=== PATIENT | female | born 1985 | race Caucasian/White ===

== ENCOUNTER 2018-01-22 19:51 | Emergency (ER) | payer SELFPAY ==
[~2018-01-22] VITALS: Ht 152.4 cm; Wt 79.6 kg
[2018-01-22 19:58] VITALS: BP 113/79
== END 2018-01-22 21:17 | disposition home or self-care (01) ==
LOC: ED 21:00
DX: M79.1 Myalgia (principal); F17.200 Nicotine dependence, unspecified, uncomplicated
CPT/HCPCS: 71046; 93005; 99284

== ENCOUNTER 2018-01-26 15:55 | Inpatient (IN) | payer OTHER ==
[~2018-01-26] VITALS: Ht 160 cm; Wt 82.4 kg
[2018-01-26] MEDS ORDERED: KETOROLAC 30 MG/1 ML IVPush ONE ×2 (17:00→18:00)
[2018-01-26] MEDS ORDERED: ACETAMINOPHEN 500 MG TABLET PO ONE (17:00)
[2018-01-26 17:03] LABS: MEAN CORPUSCULAR HEMOGLOBIN 30.7 pg (27.0-34.8); MEAN CORPUSCULAR HGB CONC 34.1 g/dL (32.4-35.8); MEAN CORPUSCULAR VOLUME 89.8 fL (80-100); MEAN PLATELET VOLUME 6.9 fL (7.4-10.4); PLATELET COUNT 398 x10^3/uL (130-400); RED BLOOD COUNT 3.61 x10^6/uL (3.82-5.3); RED CELL DISTRIBUTION WIDTH 12.7 % (9.6-15.2)
[2018-01-26] MEDS ORDERED: KETOROLAC 30 MG/1 ML ONE ×2 (17:05→17:53)
[2018-01-26] MEDS ORDERED: ACETAMINOPHEN 500 MG TABLET ONE (17:05)
[2018-01-26 17:13] LABS: ALANINE AMINOTRANSFERASE 14 U/L (12-78); ALBUMIN 2.3 g/dL (3.4-5.0); ANION GAP 12 mmol/L (5-15); CALCIUM 8.6 mg/dL (8.5-10.1); CHLORIDE 95 mmol/L (98-107); CREATININE 1.11 mg/dL (0.55-1.02)
[2018-01-26 17:18] LABS: ALKALINE PHOSPHATASE 181 U/L (45-117); BILIRUBIN,TOTAL 0.8 mg/dL (0.2-1.0); TOTAL PROTEIN 7.3 g/dL (6.4-8.2)
[2018-01-26] MEDS ORDERED: METH500T97 PO (17:30)
[2018-01-26] MEDS ORDERED: CEFTRIAXONE PMX 1GM/50ML 50 ML ONE (17:39)
[2018-01-26 17:47] LABS: MD YES
[2018-01-26 17:52] LABS: <PLATELET ESTIMATE> ADEQUATE; <PLT MORPHOLOGY> NORMAL PLT MORPH; <RBC MORPHOLOGY> NORMAL; BAND#(MANUAL) 3.31 x10^3/uL; BANDS%(MANUAL) 18 % (0-7); EOS#(MANUAL) 0.18 x10^3/uL (0.0-0.4); EOS% (MANUAL) 1 % (1-7); LYMPH#(MANUAL) 0.55 x10^3/uL (1-3.4); LYMPHS% (MANUAL) 3 % (22-44); METAMYELOCYTES# (MANUAL) 0.37 x10^3/uL (0-0); METAMYELOCYTES% (MANUAL) 2 % (0-1); MONOS#(MANUAL) 0.37 x10^3/uL (0.3-2.7); MONOS% (MANUAL) 2 % (2-9); SEG#(MANUAL) 13.62 x10^3/uL (1.8-6.8); SEGS% (MANUAL) 74 % (42-75); TOXIC GRAN 1+
[2018-01-26] MEDS ORDERED: CEFTRIAXONE PMX 1GM/50ML 50 ML IV ONE (18:00)
[2018-01-26] MEDS ORDERED: SODIUM CHLORIDE 0.9% 1,000ML IVBOLUS ONE ×2 (18:00)
[2018-01-26] MEDS ORDERED: POTASSIUM CHLORIDE 40 MEQ in SODIUM CHLORIDE 0.9% 500 ML IV ONE (18:00)
[2018-01-26] MEDS ORDERED: AZITHROMYCIN 500 MG in SODIUM CHLORIDE 0.9% 250 ML IV ONE (18:00)
[2018-01-26] MEDS ORDERED: MORPHINE SULFATE 4 MG/ML, 1ML IVPush PRN (18:00)
[2018-01-26 18:09] LABS: MICROSCOPIC INDICATED
[2018-01-26 18:22] LABS: CULTURE INDICATED? NO
[2018-01-26] MEDS ORDERED: ONDANSETRON 2MG/ML, 2ML ONE (18:28)
[2018-01-26] MEDS ORDERED: ONDANSETRON 2MG/ML, 2ML IVPush ONE (18:30)
[2018-01-26 18:46] LABS: AMPHETAMINE SCREEN, URINE Positive (Negative); BARBITURATE SCREEN, URINE Negative (Negative); BENZODIAZEPINE SCREEN, URINE Negative (Negative); CANNABINOID SCREEN, URINE Negative (Negative); COCAINE SCREEN, URINE Negative (Negative); METHADONE SCREEN, URINE Negative (Negative); OPIATE SCREEN, URINE Positive (Negative)
[2018-01-26] MEDS ORDERED: POLYETHYLENE GLYCOL 17 GM PACKET PO PRN (19:00)
[2018-01-26] MEDS ORDERED: ONDANSETRON 2MG/ML, 2ML IVPush PRN (19:00)
[2018-01-26] MEDS ORDERED: CEFTRIAXONE PMX 1GM/50ML 50 ML IV SCH (19:00)
[2018-01-26] MEDS ORDERED: AZITHROMYCIN 500 MG in SODIUM CHLORIDE 0.9% 250 ML IV SCH (19:00)
[2018-01-26] MEDS ORDERED: BISACODYL 10 MG SUPP PR PRN (19:00)
[2018-01-26 19:55] VITALS: BP 95/60
[2018-01-26] MEDS: HEPARIN 5,000 UNITS/ML, 1ML SQ SCH (21:14)
[2018-01-26] MEDS: NICOTINE 14MG/24 HR PATCH.TD24 TD SCH (21:14)
[2018-01-26 21:22] VITALS: BP 95/60
[2018-01-26] MEDS ORDERED: BUPR1FIL3 TD (21:37)
[2018-01-26 22:13] VITALS: BP 96/56
[2018-01-26] MEDS: NS + 20MEQ KCL 1,000 ML IV SCH (22:28)
[2018-01-27] VITALS (7 sets, daily range): BP systolic 93–131; BP diastolic 56–80
[2018-01-27] MEDS: ACETAMINOPHEN 325 MG TABLET PO PRN ×4 (01:28→18:45)
[2018-01-27] MEDS: HEPARIN 5,000 UNITS/ML, 1ML SQ SCH ×3 (02:59→20:33)
[2018-01-27 05:47] LABS: MEAN CORPUSCULAR HEMOGLOBIN 29.5 pg (27.0-34.8); MEAN CORPUSCULAR HGB CONC 33.1 g/dL (32.4-35.8); MEAN CORPUSCULAR VOLUME 89.2 fL (80-100); MEAN PLATELET VOLUME 7.4 fL (7.4-10.4); PLATELET COUNT 304 x10^3/uL (130-400); RED BLOOD COUNT 3.12 x10^6/uL (3.82-5.3); RED CELL DISTRIBUTION WIDTH 13.1 % (9.6-15.2)
[2018-01-27 06:10] LABS: MD YES
[2018-01-27 06:13] LABS: <PLATELET ESTIMATE> ADEQUATE; <PLT MORPHOLOGY> NORMAL PLT MORPH; <RBC MORPHOLOGY> NORMAL; BAND#(MANUAL) 1.02 x10^3/uL; BANDS%(MANUAL) 6 % (0-7); MONOS#(MANUAL) 2.04 x10^3/uL (0.3-2.7); MONOS% (MANUAL) 12 % (2-9); SEG#(MANUAL) 13.94 x10^3/uL (1.8-6.8); SEGS% (MANUAL) 82 % (42-75); TOXIC GRAN 1+
[2018-01-27 06:15] LABS: CHLORIDE 108 mmol/L (98-107)
[2018-01-27 06:31] LABS: ALANINE AMINOTRANSFERASE 17 U/L (12-78); ALBUMIN 1.9 g/dL (3.4-5.0); ALKALINE PHOSPHATASE 169 U/L (45-117); CALCIUM 7.9 mg/dL (8.5-10.1); CREATININE 0.73 mg/dL (0.55-1.02); TOTAL PROTEIN 6.3 g/dL (6.4-8.2)
[2018-01-27] MEDS: NS + 20MEQ KCL 1,000 ML IV SCH ×3 (06:41→20:33)
[2018-01-27 07:03] LABS: ANION GAP 11 mmol/L (5-15)
[2018-01-27] MEDS ORDERED: VANCOMYCIN PER PHARMACY MC PRN (08:00)
[2018-01-27] MEDS ORDERED: VANCOMYCIN 1,500 MG in SODIUM CHLORIDE 0.9% 250 ML IV SCH (08:00)
[2018-01-27] MEDS ORDERED: PHARMACOKINETIC MONITORING MC PRN (08:00)
[2018-01-27] MEDS ORDERED: PHARMACOKINETIC CONSULTATION MC ONE (08:00)
[2018-01-27] MEDS: SENNA/DOCUSATE TABLET PO SCH (09:00)
[2018-01-27] MEDS: METHOCARBAMOL 500 MG TABLET PO SCH (10:09)
[2018-01-27] MEDS: POTASSIUM CHLORIDE 20 MEQ TAB.ER.PRT PO SCH ×2 (10:09→20:33)
[2018-01-27] MEDS ORDERED: BUPR1FIL3 TD (10:28)
[2018-01-27] MEDS: LINEZOLID PMX 600MG/300ML 300 ML IV SCH ×2 (11:33→23:00)
[2018-01-27 11:47] LABS: RAPID INFLUENZA A Negative (Negative); RAPID INFLUENZA B Negative (Negative)
[2018-01-27] MEDS: LORazepam 0.5MG TABLET PO PRN ×2 (12:41→20:41)
[2018-01-27] MEDS ORDERED: CEFTRIAXONE 1,000 MG in SODIUM CHLORIDE 0.9% 50 ML IV SCH (18:00)
[2018-01-27] MEDS ORDERED: AZITHROMYCIN 500 MG in SODIUM CHLORIDE 0.9% 250 ML IV SCH (18:00)
[2018-01-27] MEDS: NICOTINE 14MG/24 HR PATCH.TD24 TD SCH (18:45)
[2018-01-28] MEDS: ACETAMINOPHEN 325 MG TABLET PO PRN ×3 (00:42→16:32)
[2018-01-28 01:21] VITALS: BP 107/67
[2018-01-28 04:58] LABS: MEAN CORPUSCULAR HEMOGLOBIN 29.8 pg (27.0-34.8); MEAN CORPUSCULAR HGB CONC 32.9 g/dL (32.4-35.8); MEAN CORPUSCULAR VOLUME 90.5 fL (80-100); MEAN PLATELET VOLUME 7.5 fL (7.4-10.4); PLATELET COUNT 218 x10^3/uL (130-400); RED CELL DISTRIBUTION WIDTH 13.1 % (9.6-15.2)
[2018-01-28 05:02] LABS: CHLORIDE 112 mmol/L (98-107)
[2018-01-28 05:11] LABS: % IRON SATURATION 7 % (20-55); ALANINE AMINOTRANSFERASE 15 U/L (12-78); ALBUMIN 1.6 g/dL (3.4-5.0); ALKALINE PHOSPHATASE 261 U/L (45-117); ANION GAP 6 mmol/L (5-15); BILIRUBIN,TOTAL 1.1 mg/dL (0.2-1.0); CALCIUM 7.8 mg/dL (8.5-10.1); CREATININE 0.47 mg/dL (0.55-1.02); IRON LEVEL 18 mcg/dL (50-170); TOTAL IRON BINDING CAPACITY 260 mcg/dL (250-450); TOTAL PROTEIN 5.9 g/dL (6.4-8.2)
[2018-01-28] MEDS: NS + 20MEQ KCL 1,000 ML IV SCH ×2 (05:36→14:19)
[2018-01-28] MEDS: HEPARIN 5,000 UNITS/ML, 1ML SQ SCH ×3 (05:36→20:59)
[2018-01-28 05:44] LABS: MD YES
[2018-01-28 05:46] LABS: <RBC MORPHOLOGY> NORMAL; BAND#(MANUAL) 1.52 x10^3/uL; BANDS%(MANUAL) 8 % (0-7); BASOS#(MANUAL) 0.19 x10^3/uL (0-0.1); BASOS% (MANUAL) 1 % (0-1); EOS#(MANUAL) 0.19 x10^3/uL (0.0-0.4); EOS% (MANUAL) 1 % (1-7); LYMPH#(MANUAL) 1.14 x10^3/uL (1-3.4); LYMPHS% (MANUAL) 6 % (22-44); MONOS#(MANUAL) 0.57 x10^3/uL (0.3-2.7); MONOS% (MANUAL) 3 % (2-9); SEG#(MANUAL) 15.39 x10^3/uL (1.8-6.8); SEGS% (MANUAL) 81 % (42-75)
[2018-01-28 05:47] LABS: <PLATELET ESTIMATE> ADEQUATE; <PLT MORPHOLOGY> NORMAL PLT MORPH
[2018-01-28] MEDS: SENNA/DOCUSATE TABLET PO SCH (09:00)
[2018-01-28 09:19] VITALS: BP 112/76
[2018-01-28] MEDS: METHOCARBAMOL 500 MG TABLET PO SCH (10:41)
[2018-01-28] MEDS: POTASSIUM CHLORIDE 20 MEQ TAB.ER.PRT PO SCH ×2 (10:41→20:59)
[2018-01-28] MEDS: LORazepam 0.5MG TABLET PO PRN ×3 (10:42→22:15)
[2018-01-28] MEDS: LINEZOLID PMX 600MG/300ML 300 ML IV SCH (12:31)
[2018-01-28] MEDS ORDERED: MORPHINE SULFATE 4 MG/ML, 1ML IVPush ONE (15:10)
[2018-01-28 15:18] VITALS: BP 112/73
[2018-01-28] MEDS ORDERED: OMNIPAQUE 350 MG/ML, 100ML BOTTLE ONE (17:02)
[2018-01-28 18:54] VITALS: BP 100/61
[2018-01-28] MEDS: NICOTINE 14MG/24 HR PATCH.TD24 TD SCH (21:00)
[2018-01-29] MEDS: LINEZOLID PMX 600MG/300ML 300 ML IV SCH (00:18)
[2018-01-29 02:36] VITALS: BP 112/70
[2018-01-29] MEDS: ACETAMINOPHEN 325 MG TABLET PO PRN (02:47)
[2018-01-29] MEDS ORDERED: FUROSEMIDE 40 MG/4 ML IV ONE (03:00)
[2018-01-29] MEDS ORDERED: FUROSEMIDE 40 MG/4 ML ONE (03:08)
[2018-01-29] MEDS: LORazepam 0.5MG TABLET PO PRN ×2 (03:38→13:36)
[2018-01-29] MEDS: HEPARIN 5,000 UNITS/ML, 1ML SQ SCH ×3 (05:35→21:00)
[2018-01-29 06:39] LABS: ALANINE AMINOTRANSFERASE 15 U/L (12-78); ALBUMIN 1.6 g/dL (3.4-5.0); ANION GAP 9 mmol/L (5-15); CHLORIDE 103 mmol/L (98-107); CREATININE 0.58 mg/dL (0.55-1.02)
[2018-01-29 06:40] VITALS: BP 101/70
[2018-01-29 06:42] LABS: ALKALINE PHOSPHATASE 334 U/L (45-117); BILIRUBIN,TOTAL 0.9 mg/dL (0.2-1.0)
[2018-01-29 06:45] LABS: MEAN CORPUSCULAR HEMOGLOBIN 29.9 pg (27.0-34.8); MEAN CORPUSCULAR HGB CONC 33.7 g/dL (32.4-35.8); MEAN CORPUSCULAR VOLUME 88.9 fL (80-100); MEAN PLATELET VOLUME 7.7 fL (7.4-10.4); PLATELET COUNT 235 x10^3/uL (130-400); RED BLOOD COUNT 3.59 x10^6/uL (3.82-5.3); RED CELL DISTRIBUTION WIDTH 13.4 % (9.6-15.2)
[2018-01-29 07:58] LABS: MD YES
[2018-01-29 07:59] LABS: LYMPH#(MANUAL) 1.97 x10^3/uL (1-3.4); LYMPHS% (MANUAL) 8 % (22-44); MONOS#(MANUAL) 0.98 x10^3/uL (0.3-2.7); MONOS% (MANUAL) 4 % (2-9); SEG#(MANUAL) 21.65 x10^3/uL (1.8-6.8); SEGS% (MANUAL) 88 % (42-75)
[2018-01-29 08:00] LABS: <PLATELET ESTIMATE> ADEQUATE; <PLT MORPHOLOGY> NORMAL PLT MORPH; <RBC MORPHOLOGY> NORMAL; TOXIC GRAN 1+
[2018-01-29] MEDS: POTASSIUM CHLORIDE 20 MEQ TAB.ER.PRT PO SCH ×2 (09:19→21:00)
[2018-01-29] MEDS: SENNA/DOCUSATE TABLET PO SCH (09:19)
[2018-01-29] MEDS: METHOCARBAMOL 500 MG TABLET PO SCH (09:19)
[2018-01-29 12:10] VITALS: BP 110/73
[2018-01-29] MEDS: FERROUS SULFATE 325 MG TABLET PO SCH ×2 (12:41→17:45)
[2018-01-29] MEDS: CEFAZOLIN PMX 2GM/50ML 50 ML IVPB SCH ×2 (12:41→21:00)
[2018-01-29] MEDS: NS + 20MEQ KCL 1,000 ML IV SCH (13:58)
[2018-01-29 20:00] VITALS: BP 111/74
[2018-01-29] MEDS: NICOTINE 14MG/24 HR PATCH.TD24 TD SCH (21:08)
[2018-01-30 02:00] VITALS: BP 122/74
[2018-01-30] MEDS: CEFAZOLIN PMX 2GM/50ML 50 ML IVPB SCH ×3 (05:27→22:12)
[2018-01-30] MEDS: HEPARIN 5,000 UNITS/ML, 1ML SQ SCH ×3 (05:27→21:31)
[2018-01-30 07:25] VITALS: BP 116/72
[2018-01-30] MEDS: SENNA/DOCUSATE TABLET PO SCH (09:00)
[2018-01-30] MEDS: METHOCARBAMOL 500 MG TABLET PO SCH (09:35)
[2018-01-30] MEDS: POTASSIUM CHLORIDE 20 MEQ TAB.ER.PRT PO SCH ×2 (09:35→21:30)
[2018-01-30] MEDS: FERROUS SULFATE 325 MG TABLET PO SCH ×3 (09:35→17:00)
[2018-01-30 13:44] VITALS: BP 114/77
[2018-01-30] MEDS: ACETAMINOPHEN 325 MG TABLET PO PRN (14:23)
[2018-01-30] MEDS: LORazepam 0.5MG TABLET PO PRN ×2 (14:23→22:12)
[2018-01-30 20:47] VITALS: BP 120/81
[2018-01-30] MEDS: NICOTINE 14MG/24 HR PATCH.TD24 TD SCH (21:31)
[2018-01-31 01:25] VITALS: BP 107/70
[2018-01-31] MEDS: CEFAZOLIN PMX 2GM/50ML 50 ML IVPB SCH ×2 (05:43→13:55)
[2018-01-31] MEDS: HEPARIN 5,000 UNITS/ML, 1ML SQ SCH (05:43)
[2018-01-31 07:30] VITALS: BP 112/68
[2018-01-31] MEDS: FERROUS SULFATE 325 MG TABLET PO SCH ×3 (09:11→17:23)
[2018-01-31] MEDS: METHOCARBAMOL 500 MG TABLET PO SCH (09:11)
[2018-01-31] MEDS: POTASSIUM CHLORIDE 20 MEQ TAB.ER.PRT PO SCH ×2 (09:11→23:16)
[2018-01-31] MEDS: SENNA/DOCUSATE TABLET PO SCH (09:12)
[2018-01-31 10:55] LABS: MEAN CORPUSCULAR HEMOGLOBIN 30.3 pg (27.0-34.8); MEAN CORPUSCULAR HGB CONC 34.5 g/dL (32.4-35.8); MEAN CORPUSCULAR VOLUME 87.7 fL (80-100); MEAN PLATELET VOLUME 7.2 fL (7.4-10.4); PLATELET COUNT 285 x10^3/uL (130-400); RED BLOOD COUNT 3.37 x10^6/uL (3.82-5.3); RED CELL DISTRIBUTION WIDTH 12.9 % (9.6-15.2)
[2018-01-31 11:02] LABS: INTERNATIONAL NORMALIZED RATIO 1.23 (0.93-1.1); PROTHROMBIN TIME 12.7 Seconds (9.6-11.5)
[2018-01-31 11:07] LABS: ALANINE AMINOTRANSFERASE 15 U/L (12-78); ALBUMIN 1.7 g/dL (3.4-5.0); ANION GAP 7 mmol/L (5-15); CALCIUM 8.2 mg/dL (8.5-10.1); CHLORIDE 101 mmol/L (98-107); CREATININE 0.47 mg/dL (0.55-1.02)
[2018-01-31 11:08] LABS: MD YES
[2018-01-31 11:09] LABS: ALKALINE PHOSPHATASE 443 U/L (45-117); BILIRUBIN,TOTAL 0.6 mg/dL (0.2-1.0); TOTAL PROTEIN 6.9 g/dL (6.4-8.2)
[2018-01-31 11:10] LABS: BANDS%(MANUAL) 1 % (0-7); LYMPHS% (MANUAL) 12 % (22-44); MONOS% (MANUAL) 5 % (2-9); SEGS% (MANUAL) 82 % (42-75)
[2018-01-31 11:11] LABS: <PLATELET ESTIMATE> ADEQUATE; <PLT MORPHOLOGY> NORMAL PLT MORPH; <RBC MORPHOLOGY> NORMAL
[2018-01-31 14:38] VITALS: BP 109/74
[2018-01-31] MEDS ORDERED: EPINEPHRINE 1 MG/ML, 1ML ONE (18:22)
[2018-01-31] MEDS ORDERED: BUPIVACAINE/PF 0.5% ONE (18:22)
[2018-01-31] MEDS ORDERED: FENTANYL PF 250 MCG/5ML ONE (18:40)
[2018-01-31] MEDS ORDERED: MIDAZOLAM 1 MG/ML, 2ML ONE (18:40)
[2018-01-31] MEDS ORDERED: NEOSTIGMINE 1 MG/ML, 10ML ONE (18:48)
[2018-01-31] MEDS ORDERED: GLYCOPYRROLATE 0.2MG/1ML, 5ML ONE (18:48)
[2018-01-31] MEDS ORDERED: PROPOFOL 10 MG/ML, 20ML ONE (18:48)
[2018-01-31] MEDS ORDERED: PHENYLEPHRINE 10 MG/ML ONE (18:48)
[2018-01-31] MEDS ORDERED: DEXAMETHASONE 4 MG/ML, 1ML ONE (18:48)
[2018-01-31] MEDS ORDERED: ROCURONIUM 10 MG/ML,10ML ONE (18:48)
[2018-01-31] MEDS ORDERED: SUCCINYLCHOLINE 20 MG/ML, 10ML ONE (18:48)
[2018-01-31] MEDS ORDERED: CEFAZOLIN 1,000 MG ONE (18:48)
[2018-01-31] MEDS ORDERED: ONDANSETRON 2MG/ML, 2ML ONE (18:48)
[2018-01-31] MEDS ORDERED: SUGAMMADEX 200 MG/2 ML IVPush ONE (19:44)
[2018-01-31] MEDS ORDERED: HALOPERIDOL 5 MG/ML ONE (19:57)
[2018-01-31] MEDS ORDERED: FENTANYL PF 100 MCG/2ML ONE (19:58)
[2018-01-31] MEDS ORDERED: OXYcodone 5 MG/5 ML ORAL.SOL UDC ONE (19:58)
[2018-01-31] MEDS ORDERED: ALBUTEROL/IPRATROPIUM 2.5MG/0.5MG, 3 ML NPPB PRN (20:00)
[2018-01-31] MEDS ORDERED: ONDANSETRON ODT 8 MG PO PRN (20:00)
[2018-01-31] MEDS ORDERED: HALOPERIDOL 5 MG/ML IV PRN (20:00)
[2018-01-31] MEDS ORDERED: ALBUTEROL SULFATE 2.5 MG/3 ML NPPB PRN (20:00)
[2018-01-31] MEDS ORDERED: ACETAMINOPHEN 325 MG TABLET PO PRN (20:00)
[2018-01-31] MEDS ORDERED: PROMETHAZINE 25 MG/ML, 1ML IV PRN (20:00)
[2018-01-31] MEDS: FENTANYL PF 100 MCG/2ML IV PRN ×2 (20:00→20:10)
[2018-01-31] MEDS ORDERED: OXYcodone 5 MG/5 ML ORAL.SOL UDC PO PRN (20:00)
[2018-01-31] MEDS ORDERED: MORPHINE SULFATE 4 MG/ML, 1ML IVPush PRN (20:00)
[2018-01-31] MEDS ORDERED: HYDROcodone/APAP 7.5-325MG/15ML UDC PO PRN (20:00)
[2018-01-31] MEDS ORDERED: morphine SULFATE 10 MG/ML, 1ML ONE (20:20)
[2018-01-31] MEDS: MORPHINE SULFATE 4 MG/ML, 1ML IVPush PRN ×3 (20:23→20:53)
[2018-01-31 21:15] VITALS: BP 96/56
[2018-01-31] MEDS: NICOTINE 14MG/24 HR PATCH.TD24 TD SCH (23:00)
[2018-02-01 02:13] VITALS: BP 100/58
[2018-02-01] MEDS: CEFAZOLIN PMX 2GM/50ML 50 ML IVPB SCH ×3 (03:51→19:20)
[2018-02-01] MEDS: LORazepam 0.5MG TABLET PO PRN (04:12)
[2018-02-01 07:57] VITALS: BP 104/70
[2018-02-01] MEDS: FERROUS SULFATE 325 MG TABLET PO SCH ×3 (08:02→17:11)
[2018-02-01] MEDS: METHOCARBAMOL 500 MG TABLET PO SCH (08:02)
[2018-02-01] MEDS: POTASSIUM CHLORIDE 20 MEQ TAB.ER.PRT PO SCH ×2 (08:02→22:00)
[2018-02-01] MEDS: HYDROcodone/APAP 5/325 TABLET PO PRN ×4 (08:03→22:00)
[2018-02-01] MEDS: SENNA/DOCUSATE TABLET PO SCH (08:03)
[2018-02-01 08:34] LABS: MEAN CORPUSCULAR HEMOGLOBIN 29.8 pg (27.0-34.8); MEAN CORPUSCULAR HGB CONC 33.7 g/dL (32.4-35.8); MEAN CORPUSCULAR VOLUME 88.4 fL (80-100); MEAN PLATELET VOLUME 7.8 fL (7.4-10.4); PLATELET COUNT 418 x10^3/uL (130-400); RED BLOOD COUNT 3.17 x10^6/uL (3.82-5.3); RED CELL DISTRIBUTION WIDTH 13.3 % (9.6-15.2)
[2018-02-01 08:43] LABS: ALANINE AMINOTRANSFERASE 13 U/L (12-78); ALBUMIN 1.9 g/dL (3.4-5.0); ANION GAP 8 mmol/L (5-15); CALCIUM 8.5 mg/dL (8.5-10.1); CHLORIDE 99 mmol/L (98-107); CREATININE 0.53 mg/dL (0.55-1.02)
[2018-02-01 08:45] LABS: ALKALINE PHOSPHATASE 364 U/L (45-117); BILIRUBIN,TOTAL 0.4 mg/dL (0.2-1.0); TOTAL PROTEIN 7.4 g/dL (6.4-8.2)
[2018-02-01 08:50] LABS: BASOPHILS # (AUTO) 0.15 x10^3/uL (0-0.1); BASOPHILS % (AUTO) 1 % (0-1); EOSINOPHILS % (AUTO) 0 % (1-7); LYMPHOCYTES # (AUTO) 1.78 x10^3/uL (1-3.4); LYMPHOCYTES % (AUTO) 9 % (22-44); MD SCAN; MONOCYTES # (AUTO) 0.05 x10^3/uL (0.2-0.8); MONOCYTES % (AUTO) 0 % (2-9); NEUTROPHILS # (AUTO) 17.14 x10^3/uL (1.8-6.8); NEUTROPHILS % (AUTO) 90 % (42-75)
[2018-02-01 13:10] VITALS: BP 98/55
[2018-02-01 18:52] VITALS: BP 116/70
[2018-02-01] MEDS: NICOTINE 14MG/24 HR PATCH.TD24 TD SCH (22:00)
[2018-02-02 01:49] VITALS: BP 124/59
[2018-02-02] MEDS: CEFAZOLIN PMX 2GM/50ML 50 ML IVPB SCH ×3 (02:38→20:22)
[2018-02-02] MEDS: LORazepam 0.5MG TABLET PO PRN ×2 (02:38→20:27)
[2018-02-02] MEDS: HYDROcodone/APAP 5/325 TABLET PO PRN ×2 (05:15→15:56)
[2018-02-02 05:45] LABS: CHLORIDE 98 mmol/L (98-107)
[2018-02-02 05:50] LABS: MEAN CORPUSCULAR HEMOGLOBIN 30.2 pg (27.0-34.8); MEAN CORPUSCULAR HGB CONC 33.5 g/dL (32.4-35.8); MEAN CORPUSCULAR VOLUME 90.3 fL (80-100); RED BLOOD COUNT 3.41 x10^6/uL (3.82-5.3); RED CELL DISTRIBUTION WIDTH 13.1 % (9.6-15.2)
[2018-02-02 05:52] LABS: ALANINE AMINOTRANSFERASE 16 U/L (12-78); ALBUMIN 2.1 g/dL (3.4-5.0); ALKALINE PHOSPHATASE 341 U/L (45-117); ANION GAP 7 mmol/L (5-15); BILIRUBIN,TOTAL 0.4 mg/dL (0.2-1.0); CALCIUM 8.5 mg/dL (8.5-10.1); TOTAL PROTEIN 7.8 g/dL (6.4-8.2)
[2018-02-02 06:16] LABS: BASOPHILS # (AUTO) 0.03 x10^3/uL (0-0.1); BASOPHILS % (AUTO) 0 % (0-1); EOSINOPHILS # (AUTO) 0.09 x10^3/uL (0-0.4); EOSINOPHILS % (AUTO) 0 % (1-7); LYMPHOCYTES # (AUTO) 2.17 x10^3/uL (1-3.4); LYMPHOCYTES % (AUTO) 10 % (22-44); MD SCAN; MEAN PLATELET VOLUME 7.8 fL (7.4-10.4); MONOCYTES # (AUTO) 0.47 x10^3/uL (0.2-0.8); MONOCYTES % (AUTO) 2 % (2-9); NEUTROPHILS # (AUTO) 19.07 x10^3/uL (1.8-6.8); NEUTROPHILS % (AUTO) 87 % (42-75); PLATELET COUNT 702 x10^3/uL (130-400)
[2018-02-02 07:00] VITALS: BP 109/72
[2018-02-02] MEDS: SENNA/DOCUSATE TABLET PO SCH (09:00)
[2018-02-02] MEDS: METHOCARBAMOL 500 MG TABLET PO SCH (10:52)
[2018-02-02] MEDS: FERROUS SULFATE 325 MG TABLET PO SCH ×3 (10:52→15:56)
[2018-02-02 14:37] VITALS: BP 112/63
[2018-02-02] MEDS: NICOTINE 14MG/24 HR PATCH.TD24 TD SCH (20:22)
[2018-02-02 21:50] VITALS: BP 99/63
[2018-02-03 01:44] VITALS: BP 110/72
[2018-02-03] MEDS: CEFAZOLIN PMX 2GM/50ML 50 ML IVPB SCH ×2 (04:31→12:30)
[2018-02-03] MEDS: HYDROcodone/APAP 5/325 TABLET PO PRN (04:31)
[2018-02-03 06:49] VITALS: BP 110/73
[2018-02-03] MEDS: SENNA/DOCUSATE TABLET PO SCH (09:00)
[2018-02-03] MEDS: FERROUS SULFATE 325 MG TABLET PO SCH ×2 (09:38→12:00)
[2018-02-03] MEDS: METHOCARBAMOL 500 MG TABLET PO SCH (09:39)
== END 2018-02-03 13:00 | disposition left against medical advice (07) | DRG 853 ==
LOC: ED 18:31 → EDIP 18:32 → ED 18:48 → 4WST 19:38
PROVIDERS: ADMIT Internal Medicine; ATTEND Internal Medicine
PROC: 0BDN4ZZ Extraction of Right Pleura, Percutaneous Endoscopic Approach (ICD-10-PCS; principal; 2018-01-31 17:45)
DX: A41.02 Sepsis due to Methicillin resistant Staphylococcus aureus (principal); E43 Unspecified severe protein-calorie malnutrition; J85.1 Abscess of lung with pneumonia; J96.01 Acute respiratory failure with hypoxia; N17.0 Acute kidney failure with tubular necrosis; B19.10 Unspecified viral hepatitis B without hepatic coma; E87.1 Hypo-osmolality and hyponatremia; J90 Pleural effusion, not elsewhere classified; Z68.32 Body mass index [BMI] 32.0-32.9, adult; R65.20 Severe sepsis without septic shock; D50.9 Iron deficiency anemia, unspecified; D63.8 Anemia in other chronic diseases classified elsewhere; E87.6 Hypokalemia; F15.10 Other stimulant abuse, uncomplicated; F17.210 Nicotine dependence, cigarettes, uncomplicated; Z53.21 Procedure and treatment not carried out due to patient leaving prior to being seen by health care provider; H54.61 Unqualified visual loss, right eye, normal vision left eye; K80.20 Calculus of gallbladder without cholecystitis without obstruction; Y95 Nosocomial condition; Z98.51 Tubal ligation status
CPT/HCPCS: 36415; 71045; 71275; 76700; 80053; 80074; 80307; 81001; 82728; 82977; 83540; 83550; 83605; 83690; 83735; 84100; 84145; 84703; 85025; 85610; 86706; 87040; 87070; 87075; 87077; 87147; 87186; 87205; 87400; 87806; 93005; 93306; 93308; 93321; 93325; 96361; 96365; 96375; 96376; C1729; J0171; J0456; J0690; J0696; J1100; J1644; J1885; J1940; J2020; J2250; J2405; J2704; J2710; J3010; J3480; J3490; Q9967; G0475; J0330; J1630; J2370; J7030; J7040; J7050